=== PATIENT | male | born 1980 | race African-American/Black ===

== ENCOUNTER → 2021-06-19 | Emergency (ER) | payer MEDICARE, MEDICAID ==
[~2021-06-19] VITALS: Ht 195.6 cm; Wt 117.9 kg
[2021-06-19 16:46] VITALS: BP 164/110
== END | disposition left against medical advice (07) ==
LOC: EDUNIT# 16:25 → ER 16:33 → EDBD 16:33
DX: R10.2 Pelvic and perineal pain (principal); Z53.21 Procedure and treatment not carried out due to patient leaving prior to being seen by health care provider